=== PATIENT | female | born 1995 | race Caucasian/White ===

== ENCOUNTER 2018-12-14 04:13 | Emergency (ER) | payer SELFPAY ==
[2018-12-14] MEDS ORDERED: Metoclopramide IV* 5 MG/ML 2 ML VIAL ONE (04:34)
[2018-12-14] MEDS ORDERED: Metoclopramide IV* 5 MG/ML 2 ML VIAL IV ONE (04:36)
--- NOTE | 2018-12-14 04:44 | ED ---
Substance Abuse/Use - HPI Summary HPI Summary: This patient is a 23 year old F brought in by EMS and [employer] with a chief complaint of EtOH abuse since just GL[employer]. Patient reports vomiting in the ambulance and ED and agitation. She is responsive to painful stimuli. [employer] student. Vitals in the room: HR 73 bpm, BP 129/89. Level 5 caveat due to intoxication. - History Of Current Complaint Chief Complaint: EDOverdose Stated Complaint: ETOH -PER EMS Time Seen by Provider: 12/14/18 04:16 Hx Obtained From: EMS Hx From Patient Unobtainable Due To: Other - intoxication Character: Angry Associated Signs And Symptoms: Hostile, Vomiting - Allergies/Home Medications Home Medications: Home Medications Unobtainable 12/14/18 [History Confirmed 12/14/18] PMH/Surg Hx/FS Hx/Imm Hx History: Denies: Hx Dialysis Sensory History: Denies: Hx Deafness Infectious Disease History: No Infectious Disease History: Denies: Traveled Outside the [place] in Last 30 Days - Family History Known Family History: Positive: Non-Contributory - Social History Occupation: Student Alcohol Use: Occasionally Review of Systems - ROS Summary Review of Systems Summary: ROS LIMITED DUE TO INTOXICATION, LEVEL 5 CAVEAT Positive: Vomiting Positive: Other - agitated All Other Systems Reviewed And Are Negative: No Physical Exam - Summary Physical Exam Summary: VITAL SIGNS: Reviewed. GENERAL: Patient is a well-developed and nourished female who is lying comfortable in the stretcher. Patient is not in any acute respiratory distress. HEAD AND FACE: No signs of trauma. No ecchymosis, hematomas or skull depressions. No sinus tenderness. EYES: PERRLA, EOMI x 2, No injected conjunctiva, no nystagmus. EARS: Hearing grossly intact. Ear canals and tympanic membranes are within normal limits. MOUTH: Oropharynx within normal limits. NECK: Supple, trachea is midline, no adenopathy, no JVD, no carotid bruit, no c- spine tenderness, neck with full ROM. CHEST: Symmetric, no tenderness at palpation LUNGS: Clear to auscultation bilaterally. No wheezing or crackles. CVS: Regular rate and rhythm, S1 and S2 present, no murmurs or gallops appreciated. ABDOMEN: Soft, non-tender. No signs of distention. No rebound no guarding, and no masses palpated. Bowel sounds are normal. EXTREMITIES: FROM in all major joints, no edema, no cyanosis or clubbing. NEURO: Alert and oriented x 3. No acute neurological deficits. Responsive to painful stimuli. SKIN: Dry and warm Triage Information Reviewed: Yes Vital Signs On Initial Exam: Initial Vitals Temp Pulse Resp BP Pulse Ox 97.0 F 106 12 129/89 98 12/14/18 04:16 12/14/18 04:16 12/14/18 04:16 12/14/18 04:16 12/14/18 04:16 Vital Signs Reviewed: Yes Diagnostics - Vital Signs Vital Signs Temp Pulse Resp BP Pulse Ox 12/14/18 04:16 97.0 F 106 12 129/89 98 - Laboratory Lab Statement: Any lab studies that have been ordered have been reviewed, and results considered in the medical decision making process. Course/Dx - Course Course Of Treatment: This patient is a 23 year old F brought in by EMS and [facility] with a chief complaint of EtOH abuse since just GL[employer] ED[employer]. Patient reports vomiting in the ambulance and ED and agitation. In the ED course the patient was given Metoclopramide. The patient will be signed out by Dr. Lynch to Dr. Kebede, pending sobriety and disposition. - Diagnoses Provider Diagnoses: Alcohol intoxication Discharge - Sign-Out/Discharge Documenting (check all that apply): Sign-Out Patient Signing out patient TO: Darrius Kebede Patient Received Moderate/Deep Sedation with Procedure: No - Discharge Plan Patient Education Materials: Alcohol Intoxication (ED) Referrals: [facility] [place] [facility] REFERRAL [Outside] - Attestation Statements Document Initiated by Scribe: Yes Documenting Scribe: Sergio Álvarez Provider For Whom Scribe is Documenting (Include Credential): Sarita Lynch MD Scribe Attestation: Sergio Jimenez, scribed for Sarita Lynch MD on 12/14/18 at 0616. Status of Scribe Document: Ready
--- NOTE | 2018-12-14 07:00 | ED ---
Progress - Progress Note Progress Note: RECEIVING SIGN-OUT FROM DR. LYNCH AT [facility]IFT [facility], PENDING PT SOBRIETY AND DISPOSITION. Pt is a 23 y/o F brought in by ambulance for ETOH intoxication. Course/Dx - Course Course Of Treatment: This patient is a 23 year old F brought in by EMS and [employer] with a chief complaint of EtOH abuse since just [employer]. Patient reports vomiting in the ambulance and ED and agitation. In the ED course the patient was given Metoclopramide. The patient is alert and oriented, she is sober and ambulating in her own with good steady walk. She will de discharged home with f/u of PCP. - Diagnoses Provider Diagnoses: Alcohol intoxication Discharge - Sign-Out/Discharge Documenting (check all that apply): Patient Departure - D/C, Receiving Sign-Out Receiving patient FROM: Sarita Lynch - pending sobriety and dispo Patient Received Moderate/Deep Sedation with Procedure: No - Discharge Plan Condition: Stable Disposition: HOME Patient Education Materials: Alcohol Intoxication (ED) Ref[place] [facility] [place]Outside] Additional Instructions: RETURN TO THE ED FOR ANY WORSENING OR NEW SYMPTOMS. - Billing Disposition and Condition Condition: STABLE Disposition: Home - Attestation Statements Document Initiated by Scribe: Yes Documenting Scribe: Andrey Gupta Provider For Whom Scribe is Documenting (Include Credential): Dr. Darrius Kebede MD Scribe Attestation: Andrey Jimenez scribed for Dr. Darrius Kebede MD on 12/14/18 at 1852. Scribe Documentation Reviewed: Yes Provider Attestation: The documentation as recorded by the Andrey rodriguez accurately reflects the service I personally performed and the decisions made by me, Dr. Darrius Kebede MD Status of Scribe Document: Viewed
[2018-12-14 10:26] VITALS: BP 125/74
== END 2018-12-14 10:32 | disposition home or self-care (01) ==
LOC: ED 04:13
DX: F10.129 Alcohol abuse with intoxication, unspecified (principal)
CPT/HCPCS: 96374; 99284; J2765